=== PATIENT | male | born 1965 | race Two or more races ===

== ENCOUNTER 2016-12-08 06:07 | Emergency (ER) | payer SELFPAY ==
[2016-12-08] MEDS ORDERED: Maalox 30 mL Cup ONE (06:13)
[2016-12-08] MEDS ORDERED: Lidocaine 2% Gel 5 mL TP ONE (06:13)
[2016-12-08] MEDS ORDERED: Pantoprazole 40 mg EC Tab PO STA (06:13)
[2016-12-08] MEDS ORDERED: Maalox 30 mL Cup PO STA (06:13)
--- NOTE | 2016-12-08 06:13 | ED Physician Chart ---
Chief Complaint/HPI - Patient Information Date Seen:: 12/08/16 Time Seen:: 06:10 Chief Complaint:: medical clearance/screening exam History of Present Illness:: 51-year-old male, brought in by police, with acute, constant, moderate need for medical screening examination that started about 30 minutes ago when he was arrested. Developed associated upper abdominal pain when he was placed under arrest. Has history of peptic ulcers. Allergies:: Allergies Allergy/AdvReac Type Severity Reaction Status Date / Time No Known Allergies Allergy Verified 12/08/16 06:11 Historian:: Patient, Other (police) Review:: Nurse's Note Reviewed Review of Systems - Review of Systems Other: Complete system review otherwise unremarkable except as noted in history of present illness. Past Medical History - Past Medical History Past Medical History: Other (peptic ulcer disease) Family History: None Social History: Non Smoker, Alcohol, No Drug Use (former drug use), Other Surgical History: None Psychiatricy History: None Medication: None Family Medical History - Family Member Mother History Unknown: Yes Physical Exam - Physical Examination Other:: INITIAL VITAL SIGNS: Reviewed by me GENERAL: Alert and interactive. No acute distress HEAD: Head is normocephalic and atraumatic EYES: EOMI. PERRL. No scleral icterus. No conjunctival injection ENT: Moist mucous membranes. NECK: Supple. No masses. Full range of motion RESPIRATORY: No tachypnea. Clear breath sounds bilaterally. No wheezing, rales, or rhonchi CV: Regular rate and rhythm. No murmurs, rubs, or gallops ABDOMEN: Soft, non-distended, non-tender. No guarding. No rebound. No masses. EXTREMITIES: No deformity. No cyanosis. No edema. SKIN: Warm and dry. No obvious rashes. NEUROLOGIC: Alert and oriented. Face is symmetric. Speech is normal. Moves all extremities equally. Motor and sensory distally intact. ED Septic Shock - . Is Septic Shock (SBP<90, OR Lactate>4 mmol\L) present?: No Reassessment (Disposition) - Reassessment Reassessment:: Patient has a history of peptic ulcer disease. He is hemodynamically stable. Shows no signs of distress. Exam is unremarkable. We did give GI cocktail with Maalox and viscous lidocaine. Also gave by mouth Protonix. The patient has been medically cleared for booking. Reassessment Condition:: Improved - Diagnosis Diagnosis:: Medical screening examination Upper abdominal pain, unspecified - Aftercare/Follow up Instructions Aftercare/Follow-Up Instructions:: Counseled pt regarding lab results/diagnosis & need follow up, Refer to Discharge Instructions - Patient Disposition Discharge/Transfer:: Correction/Longterm Time:: 06:16 Condition at Disposition:: Improved ED Discharge Plan - Patient Disposition Admit/Discharge/Transfer: PT DISCHARGED HOME Condition at Disposition: Improved Additional Instructions: Follow-up with your primary care physician within one to 2 days when you are was released from police custody
[2016-12-08] MEDS ORDERED: Pantoprazole 40 mg EC Tab PO ONE (06:14)
== END 2016-12-08 06:35 | disposition still patient (30) ==
LOC: ER 06:07
DX: R10.10 Upper abdominal pain, unspecified (principal); Z13.9 Encounter for screening, unspecified
CPT/HCPCS: Z7502; Z7610